=== PATIENT | female | born 1985 | race Two or more races ===

== ENCOUNTER 2017-05-15 22:36 | Emergency (ER) | payer SELFPAY ==
[~2017-05-15] VITALS: Ht 157.5 cm; Wt 99.2 kg
[2017-05-15 23:25] LABS: PATH.CAST-FLAG NOT PRESENT; SPERM-FLAG NOT PRESENT; SRC-FLAG NOT PRESENT; XTAL-FLAG NOT PRESENT; YLC-FLAG NOT PRESENT
[2017-05-15 23:27] LABS: HCG UR OBC PASS
[2017-05-15 23:53] VITALS: BP 116/50
[2017-05-15 23:55] LABS: ASPARTATE AMINO TRANSFERASE 9 U/L (15-37); BLOOD UREA NITROGEN 15 mg/dL (7-18)
[2017-05-16] MEDS ORDERED: HYDROcodone/APAP 5/325 TABLET PO ONE
[2017-05-16] MEDS ORDERED: ONDANSETRON ODT 4 MG PO ONE
[2017-05-16] MEDS ORDERED: ONDANSETRON ODT 4 MG ONE (00:03)
[2017-05-16] MEDS ORDERED: HYDROcodone/APAP 5/325 TABLET ONE (00:14)
== END 2017-05-16 00:53 | disposition home or self-care (01) ==
LOC: ED 23:59
DX: R10.84 Generalized abdominal pain (principal); R11.0 Nausea; B02.9 Zoster without complications; G43.909 Migraine, unspecified, not intractable, without status migrainosus; Z87.891 Personal history of nicotine dependence; Z88.0 Allergy status to penicillin
CPT/HCPCS: 36415; 80053; 81001; 81025; 83690; 85025; 99284; Q0162